=== PATIENT | male | born 1960 | race Caucasian/White ===

== ENCOUNTER 2023-07-18 15:44 | Day surgery (SDC) | payer MEDICARE ==
[2023-07-18] MEDS ORDERED: LIDOCAINE HCL 1% 50 MG/5 ML VL PF IJ ONE (15:45)
[2023-07-18] MEDS ORDERED: Sodium Chloride 0.9(Preservative Free) 10 ML IJ ONE (15:45)
[2023-07-18] MEDS ORDERED: Lactated Ringers 1,000 ML IV ONE (18:10)
[2023-07-18] MEDS ORDERED: MORPHINE SULFATE 2 MG INJ ONE (18:35)
--- NOTE | 2023-07-19 08:40 | XRAY ---
Indication: Lumbar PIA. Intraoperative fluoroscopy provided for 22 seconds. 2 digital spot image submitted for interpretation demonstrates posterior needle tip projecting posterior to lumbosacral junction. Small amount of contrast injected for needle tip placement. Correlate with intraoperative findings/report.
--- NOTE | 2023-07-19 11:31 | XRAY ---
22 seconds of fluoroscopy was used in surgery for a lumbar PIA.
== END 2023-07-18 18:59 | disposition home or self-care (01) ==
LOC: SDC-PAIN 15:44
PROVIDERS: ATTEND Psychiatry & Neurology Pain Medicine
DX: M54.16 Radiculopathy, lumbar region (principal); E11.9 Type 2 diabetes mellitus without complications
CPT/HCPCS: 62323; 72100; 77003; 82947; J2001; J2270; Q9966